=== PATIENT | male | born 1945 | race Caucasian/White ===

== ENCOUNTER 2017-01-12 10:29 | Outpatient (CLI) | payer MEDICARE, OTHER ==
[2017-01-12 18:20] LABS: CALCIUM 8.9 mg/dL (8.5-10.3); CREATININE 1.1 mg/dL (0.6-1.2); POTASSIUM 4.1 mmol/L (3.5-5.0)
== END 2017-01-12 10:30 | disposition home or self-care (01) ==
LOC: LAB.F 10:29
PROVIDERS: ATTEND Registered Nurse
DX: E87.5 Hyperkalemia (principal)
CPT/HCPCS: 36415; 80048

== ENCOUNTER 2020-09-22 08:00 | Outpatient (CLI) | payer MEDICARE, OTHER ==
--- NOTE | 2020-09-22 15:35 | XRAY Report ---
PROCEDURE: Knee 4 View BILAT INDICATIONS: BILATERAL KNEE PX TECHNIQUE: 4 views of the right and left knee(s) were acquired. COMPARISON: None. FINDINGS: Bones: The right knee has tricompartmental degenerative changes with medial and lateral joint space narrowing and tricompartmental osteophytes. No fractures or dislocations. No suspicious bony lesions . Soft tissues: Joint effusions are present bilaterally, larger on the right.. No suspicious soft tiss ue calcifications. IMPRESSION: Tricompartmental degenerative changes of both knees consistent with osteoarthritis, wors e involving the right knee. Reviewed by: Eleazar Rangel on 09/22/2020 3:33 PM PDT Approved by: Eleazar Rangel on 09/22/2020 3:33 PM PDT Station ID: [id number]
== END 2020-09-22 23:59 | disposition home or self-care (01) ==
LOC: DI.N 08:00
PROVIDERS: ATTEND Physician Assistant
DX: M17.0 Bilateral primary osteoarthritis of knee (principal)